=== PATIENT | female | born 1940 | race Two or more races ===

== ENCOUNTER 2018-05-22 07:43 | Outpatient (CLI) | payer OTHER | END 2018-05-22 08:00 | disposition home or self-care (01) | LOC: MAMO-SONO 07:43 | DX: Z12.31 Encounter for screening mammogram for malignant neoplasm of breast (principal); Z87.898 Personal history of other specified conditions; N64.89 Other specified disorders of breast; E21.3 Hyperparathyroidism, unspecified; E04.8 Other specified nontoxic goiter; N18.3 Chronic kidney disease, stage 3 (moderate); E89.0 Postprocedural hypothyroidism ==

== ENCOUNTER → 2018-05-22 | Outpatient (CLI) | payer OTHER ==
[~2018-05-22] MED LIST: ACIDOPHILUS1 EAC5 PO; CIPRO500 MG PO; COZAAR50 MG; CRESTOR5 MG; HYZAAR 100-121 UDTAB PO; INTESTINEX1 CAP PO; LEVAQUIN750 MG PO; LIPITOR20 MG PO; LOSARTAN POTASS50 MG; LYRICA50 MG; LYRICA50 MG PO; MECLIZINE HCL25 MG PO; MEDROLPACK PO; METFORMIN HYDRO25 GM; METFORMIN HYDRO25 GM MC; SYNTHROID50 MCG; TRAMADOL HCL25 GM; TUSSI PRES-B L120 M1 PO; XANAX0.25 MG
== END | disposition home or self-care (01) ==
LOC: NUCLEAR 10:16
DX: M81.0 Age-related osteoporosis without current pathological fracture (principal)

== ENCOUNTER 2018-06-27 11:42 | Emergency (ER) | payer OTHER ==
[~2018-06-27] VITALS: Ht 154.9 cm; Wt 53.5 kg
== END 2018-06-27 19:38 | disposition home or self-care (01) ==
LOC: ER 11:42
DX: M25.532 Pain in left wrist (principal); R51 Headache; R42 Dizziness and giddiness; S63.592S Other specified sprain of left wrist, sequela; S01.8 Open wound of other parts of head; W01.11 Fall on same level from slipping, tripping and stumbling with subsequent striking against sharp object
CPT/HCPCS: 70551

== ENCOUNTER 2018-07-21 09:41 | Outpatient (CLI) | payer OTHER | END 2018-07-21 09:49 | disposition home or self-care (01) | LOC: NUCLEAR 09:41 | DX: E83.52 Hypercalcemia (principal) | CPT/HCPCS: 78072; A9500 ==

== ENCOUNTER 2018-08-27 11:34 | Outpatient (CLI) | payer OTHER | END 2018-08-27 15:15 | disposition home or self-care (01) | LOC: MRI 11:34 | DX: M51.36 Other intervertebral disc degeneration, lumbar region (principal); Z98.1 Arthrodesis status | CPT/HCPCS: 72148 ==

== ENCOUNTER 2018-10-15 09:53 | Outpatient (CLI) | payer OTHER | END 2018-10-15 10:09 | disposition home or self-care (01) | LOC: LAB 09:53 | DX: D70.8 Other neutropenia (principal); D51.0 Vitamin B12 deficiency anemia due to intrinsic factor deficiency; D81.89 Other combined immunodeficiencies; D89.89 Other specified disorders involving the immune mechanism, not elsewhere classified; D64.89 Other specified anemias ==

== ENCOUNTER 2018-11-27 10:31 | Outpatient (CLI) | payer OTHER | END 2018-11-27 10:54 | disposition home or self-care (01) | LOC: LAB 10:31 | DX: E53.8 Deficiency of other specified B group vitamins (principal); E55.9 Vitamin D deficiency, unspecified; E11.40 Type 2 diabetes mellitus with diabetic neuropathy, unspecified; E06.3 Autoimmune thyroiditis; I10 Essential (primary) hypertension; M05.79 Rheumatoid arthritis with rheumatoid factor of multiple sites without organ or systems involvement; M32.8 Other forms of systemic lupus erythematosus; R10.0 Acute abdomen; R79.82 Elevated C-reactive protein (CRP) ==

== ENCOUNTER 2019-01-26 11:13 | Outpatient (CLI) | payer OTHER | END 2019-01-26 11:28 | disposition home or self-care (01) | LOC: LAB 11:13 | DX: R19.8 Other specified symptoms and signs involving the digestive system and abdomen (principal) ==

== ENCOUNTER 2019-01-29 09:22 | Outpatient (CLI) | payer OTHER | END 2019-01-29 09:26 | disposition home or self-care (01) | LOC: RX STUDY 09:22 | DX: R10.13 Epigastric pain (principal) ==

== ENCOUNTER → 2019-04-20 | Outpatient (CLI) | payer OTHER | END | disposition home or self-care (01) | LOC: SONOGRAMA 10:21 | DX: E21.2 Other hyperparathyroidism (principal); E89.0 Postprocedural hypothyroidism; E04.2 Nontoxic multinodular goiter ==

== ENCOUNTER 2019-04-23 09:59 | Outpatient (CLI) | payer OTHER | END 2019-04-23 10:05 | disposition home or self-care (01) | LOC: NUCLEAR 09:59 | DX: M35.9 Systemic involvement of connective tissue, unspecified (principal) | CPT/HCPCS: 78315; A9503 ==

== ENCOUNTER 2019-10-13 09:10 | Outpatient (CLI) | payer OTHER | END 2019-10-13 09:18 | disposition home or self-care (01) | LOC: SONOGRAMA 09:10 → MAMO-SONO 11:15 | DX: E21.2 Other hyperparathyroidism (principal); E89.0 Postprocedural hypothyroidism; E04.2 Nontoxic multinodular goiter ==

== ENCOUNTER 2019-10-13 12:46 | Outpatient (CLI) | payer OTHER | END 2019-10-13 12:53 | disposition home or self-care (01) | LOC: NUCLEAR 12:46 | DX: M81.0 Age-related osteoporosis without current pathological fracture (principal); E21.3 Hyperparathyroidism, unspecified ==

== ENCOUNTER 2019-11-05 12:30 | Emergency (ER) | payer OTHER ==
[~2019-11-05] VITALS: Ht 157.5 cm; Wt 54.9 kg
== END 2019-11-05 17:16 | disposition home or self-care (01) ==
LOC: ER 12:30
DX: S40.011A Contusion of right shoulder, initial encounter (principal); M54.2 Cervicalgia; R55 Syncope and collapse; W18.09XA Striking against other object with subsequent fall, initial encounter; Y93.89 Activity, other specified; Y92.018 Other place in single-family (private) house as the place of occurrence of the external cause; Y99.8 Other external cause status

== ENCOUNTER 2020-05-02 08:28 | Outpatient (CLI) | payer OTHER | END 2020-05-02 08:38 | disposition home or self-care (01) | LOC: NUCLEAR 08:28 | PROVIDERS: ATTEND Surgery | DX: D35.1 Benign neoplasm of parathyroid gland (principal); E83.52 Hypercalcemia | CPT/HCPCS: 78072; A9500 ==

== ENCOUNTER 2020-05-02 12:42 | Outpatient (CLI) | payer OTHER | END 2020-05-02 12:55 | disposition home or self-care (01) | LOC: MRI 12:42 | PROVIDERS: ATTEND Internal Medicine Rheumatology | DX: M75.121 Complete rotator cuff tear or rupture of right shoulder, not specified as traumatic (principal) | CPT/HCPCS: 72141; 73718 ==

== ENCOUNTER 2020-12-06 12:07 | Outpatient (CLI) | payer OTHER | END 2020-12-06 12:17 | disposition home or self-care (01) | LOC: RAD 12:07 | PROVIDERS: ATTEND Orthopaedic Surgery | DX: M19.011 Primary osteoarthritis, right shoulder (principal); M50.323 Other cervical disc degeneration at C6-C7 level; M25.511 Pain in right shoulder ==

== ENCOUNTER → 2020-12-12 | Outpatient (CLI) | payer OTHER | END | disposition home or self-care (01) | LOC: MRI 11:03 | PROVIDERS: ATTEND Orthopaedic Surgery | DX: M19.011 Primary osteoarthritis, right shoulder (principal); M25.511 Pain in right shoulder | CPT/HCPCS: 73221 ==